=== PATIENT | female | born 1965 | race Caucasian/White ===

== ENCOUNTER 2017-01-27 12:16 | Emergency (ER) | payer SELFPAY ==
[~2017-01-27] VITALS: Ht 170.2 cm; Wt 80.0 kg
[~2017-01-27 12:16] MED LIST: ARIM1TAB PO; CARI1TAB34; CIPR-9 PO; CYCL1TAB29 PO; DIAZ5 PO; GABA300C3 PO; MOBI15TA PO
[2017-01-27 12:18] VITALS: BP 128/81; PULSE 104; RESP 16; TEMP 98.2; O2SAT 97
[2017-01-27 12:27] VITALS: BP 134/83; PULSE 98; RESP 17; O2SAT 98
[2017-01-27] MEDS ORDERED: ANAS1TAB PO (12:29)
[2017-01-27] MEDS ORDERED: GABA300C5 PO (12:29)
[2017-01-27] MEDS ORDERED: SOMA350T PO (12:29)
--- NOTE | 2017-01-27 12:39 | PD ---
HPI Chief Complaint: GI Complaint Time Seen by Provider: 12:39 Travel History International Travel<30 days: No Contact w/Intl Traveler<30days: No Traveled to known affect area: No History of Present Illness HPI 51-year-old female presents to the emergency department for evaluation of blood in her stool and abdominal pain. Patient states she had an episode of blood in her stool on Thursday. However, she felt okay. Last night, she went to have a bowel movement had diarrhea and noticed blood in her stool as well. She states she started with abdominal pain at that time. She states she has went into the bathroom to have a bowel movement 4 times today and has only noticed blood. She states is about 2-3 tablespoons of blood. She states the abdominal pain has been worsening. She did protrude at home with no improvement. She reports a history of breast cancer with double mastectomy. She states that she had chemotherapy and radiation, but has been in remission for 2 years. She states she caught her oncologist today due to her symptoms and they encouraged her to come to the emergency department. She denies any fevers. No chest pain or shortness of breath. She reports a history of a tubal ligation and laparoscopic surgery to the abdomen, but denies any other surgeries. She denies any urinary symptoms. PFSH Past Medical History Blood Disorders: No Cancer: Yes (bilat. mastectomy BREAST) Cardiovascular Problems: Yes Chemotherapy: Yes Diminished Hearing: No Endocrine: No Gastrointestinal Disorders: No Genitourinary: No Immune Disorder: No Musculoskeletal: No Neurologic: No Psychiatric: No Reproductive: No Respiratory: Yes ?: Not : 15 Para: 1 Miscarriage: 14 Tubal Ligation: Yes Past Surgical History AICD: No Arteriovenous Shunt: No Insulin Pump: No Joint Replacement: No Mastectomy: Yes (BILAT) Pacemaker: No Thoracic Surgery: Yes (LEFT PORT ) Other Surgery: No Social History Alcohol Use: Yes (RARELY) Tobacco Use: Yes (VAPOR CIGARETTES, 0 MG NICOTINE DOSE-hasn't used last few weeks) Substance Use: Yes (MARIJUANA Thursday night) Allergies-Medications (Allergen,Severity, Reaction): Coded Allergies: Penicillin (Verified Allergy, Severe, Anaphylaxis, 01/27/17) Codeine (Verified Allergy, Unknown, ITCH, 01/27/17) Reported Meds & Prescriptions Reported Meds & Active Scripts Active Cipro (Ciprofloxacin HCl) 500 Mg Tab 500 Mg PO BID 7 Days Lortab (Hydrocodone-Acetaminophen) 5-325 Mg Tab 1 Tab PO Q6H PRN Reported Anastrozole 1 Mg Tab 1 Mg PO DAILY Gabapentin 300 Mg Cap 300 Mg PO TID Soma (Carisoprodol) 350 Mg Tab 350 Mg PO QID PRN Review of Systems Except as stated in HPI: all other systems reviewed are Neg Physical Exam Narrative GENERAL: Well-developed well-nourished female patient, afebrile. SKIN: Warm and dry. HEAD: Normocephalic. Atraumatic. EYES: No scleral icterus. No injection or drainage. NECK: Supple, trachea midline. No JVD or lymphadenopathy. CARDIOVASCULAR: Regular rate and rhythm without murmurs, gallops, or rubs. RESPIRATORY: Breath sounds equal bilaterally. No accessory muscle use. Lungs sounds are clear to auscultation. GASTROINTESTINAL: Abdomen and nondistended. Patient has tenderness over the epigastric region and the lower abdomen. MUSCULOSKELETAL: No cyanosis, or edema. BACK: Nontender without obvious deformity. No CVA tenderness. RECTAL EXAM: No masses or tenderness, stool is brown. Rectal exam was done with the nurse at bedside. Hemoccult is positive. Data Data Last Documented VS Vital Signs Date Time Temp Pulse Resp B/P Pulse Ox O2 Delivery O2 Flow Rate FiO2 01/27/17 14:55 73 16 131/77 97 Room Air 01/27/17 12:18 98.2 Orders Morphine Inj (Morphine Inj) (01/27/17 12:45) Complete Blood Count With Diff (01/27/17 12:37) Comprehensive Metabolic Panel (01/27/17 12:37) Lipase (01/27/17 12:37) Urinalysis - C+S If Indicated (01/27/17 12:37) Ct Abd/Pel W Iv Contrast(Rout) (01/27/17 12:37) Iv Access Insert/Monitor (01/27/17 12:37) Ecg Monitoring (01/27/17 12:37) Oximetry (01/27/17 12:37) Ondansetron Inj (Zofran Inj) (01/27/17 12:45) Sodium Chloride 0.9% Flush (Ns Flush) (01/27/17 12:45) C Diff Toxin Pcr (01/27/17 12:37) Enteric Path (Stool) (01/27/17 12:37) Sodium Chlor 0.9% 1000 Ml Inj (Ns 1000 M (01/27/17 12:45) Urine Culture (01/27/17 13:06) Iohexol 350 Inj (Omnipaque 350 Inj) (01/27/17 14:35) Morphine Inj (Morphine Inj) (01/27/17 15:00) Mandatory Outpatient Referral (01/27/17 15:15) Labs Laboratory Tests Test 01/27/17 01/27/17 12:40 13:06 White Blood Count 11.8 TH/MM3 Red Blood Count 5.34 MIL/MM3 Hemoglobin 16.3 GM/DL Hematocrit 46.4 % Mean Corpuscular Volume 86.8 FL Mean Corpuscular Hemoglobin 30.5 PG Mean Corpuscular Hemoglobin 35.1 % Concent Red Cell Distribution Width 14.3 % Platelet Count 205 TH/MM3 Mean Platelet Volume 9.8 FL Neutrophils (%) (Auto) 65.8 % Lymphocytes (%) (Auto) 28.1 % Monocytes (%) (Auto) 4.5 % Eosinophils (%) (Auto) 0.8 % Basophils (%) (Auto) 0.8 % Neutrophils # (Auto) 7.7 TH/MM3 Lymphocytes # (Auto) 3.3 TH/MM3 Monocytes # (Auto) 0.5 TH/MM3 Eosinophils # (Auto) 0.1 TH/MM3 Basophils # (Auto) 0.1 TH/MM3 CBC Comment DIFF FINAL Differential Comment Sodium Level 138 MEQ/L Potassium Level 3.9 MEQ/L Chloride Level 105 MEQ/L Carbon Dioxide Level 24.9 MEQ/L Anion Gap 8 MEQ/L Blood Urea Nitrogen 16 MG/DL Creatinine 0.82 MG/DL Estimat Glomerular Filtration 73 ML/MIN Rate Random Glucose 146 MG/DL Calcium Level 8.9 MG/DL Total Bilirubin 0.5 MG/DL Aspartate Amino Transf 20 U/L (AST/SGOT) Alanine Aminotransferase 30 U/L (ALT/SGPT) Alkaline Phosphatase 110 U/L Total Protein 8.1 GM/DL Albumin 4.0 GM/DL Lipase 161 U/L Urine Color YELLOW Urine Turbidity HAZY Urine pH 6.0 Urine Specific [place] 1.022 Urine Protein TRACE mg/dL Urine Glucose (UA) 150 mg/dL Urine Ketones TRACE mg/dL Urine Occult Blood NEG Urine Nitrite NEG Urine Bilirubin NEG Urine Urobilinogen LESS THAN 2.0 MG/DL Urine Leukocyte Esterase TRACE Urine RBC 2 /hpf Urine WBC 3 /hpf Urine Squamous Epithelial 9 /hpf Cells Urine Bacteria MOD /hpf Microscopic Urinalysis Comment CULTURE INDICATED MDM Medical Decision Making Medical Screen Exam Complete: Yes Emergency Medical Condition: Yes Interpretation(s) CONCLUSION: 1. Wall thickening involving the splenic flexure could be focal colitis. No perforation or abscess. Once the acute symptoms resolve patient will likely need a colonoscopy to exclude underlying pathology. 2. Enlarged heterogeneous uterus containing leiomyomata. 3. Left-sided renal cyst. Differential Diagnosis Colitis versus gastroenteritis versus diverticulitis versus appendicitis versus gastric ulcer Narrative Course 51-year-old female presents to the emergency department for evaluation of blood in her stool and abdominal pain. CBC, CMP, lipase, UA, stool for C. difficile and enteric pathogens are ordered and pending. CT the abdomen/pelvis with IV contrast is ordered and pending. Patient is given normal saline 1 L IV bolus, Zofran 4 mg IV, morphine 4 mg IV. CBC shows slight leukocytosis of 11.8, hemoglobin 16.3 hematocrit 46.4. CMP shows no acute abnormality. Lipase is 161. UA shows trace leukocyte esterase, moderate bacteria, culture indicated. Patient was unable to give stool sample. CT of the abdomen/pelvis shows wall thickening involving the splenic flexure could be focal colitis. No perforation or abscess. Once the acute symptoms resolve patient will likely need a colonoscopy to exclude underlying pathology; 2. Enlarged heterogeneous uterus containing leiomyomata; 3. Left-sided renal cyst. I discussed the symptoms, physical, results with my attending physician, Dr. Law, who agrees with plan and disposition. I discussed results with the patient. I instructed on need to follow up with gastroenterology for colonoscopy. Patient states she would like to go home. I offered admission for intractable abdominal pain, but she declined stating she would like to go home. Patient will be discharged prescription for Lortab for pain. I will also discharge her with prescription for Cipro for UTI. She is to return for any acute, worsening of symptoms. The patient was discharged in stable condition with instructions, including return instructions and follow up instructions. HemaPrompt Point of Care Internal Pos. & Neg. Controls: Passed Fecal Specimen Occult Blood: Positive Diagnosis Primary Impression: Colitis Additional Impression: Urinary tract infection Qualified Code: N30.00 - Acute cystitis without hematuria Referrals: [facility] call for appointment Patient Instructions: Colitis (ED), General Instructions, Urinary Tract Infection in Women (ED) Additional Instructions: Take cipro as directed until gone for UTI. Take Lortab as directed as needed for pain. Caution this can make you drowsy so do not drive after taking. Follow up with gastroenterology. Return to the emergency department for any acute, worsening of symptoms. Med/Other Pt SpecificInfo: Prescription(s) given Scripts Ciprofloxacin (Cipro)500 Mg [id number] Mg PO BID 7 Days Ref 0 Prov:Sharron Grullon 01/27/17 Hydrocodone-Acetaminophen (Lortab)5-325 Mg Tab1 Tab PO Q6H PRN (PAIN) #16 TAB Ref 0 Prov:Melissa Law MD 01/27/17 Disposition: 01 DISCHARGE HOME Condition: Stable Sharron Grullon Jan 27, 2017 12:39
[2017-01-27] MEDS ORDERED: ONDANSETRON HCL 4 MG/2 ML VIAL IVP ONE (12:45)
[2017-01-27] MEDS ORDERED: SODIUM CHLORIDE 0.9% FLUSH 5 ML FLUSH IVF PRN (12:45)
[2017-01-27] MEDS ORDERED: SODIUM CHLOR 0.9% 1000 ML INJ 1,000 ML IV ONE (12:45)
[2017-01-27] MEDS ORDERED: MORPHINE SULFATE 4 MG/ML INJ IV PUSH ONE ×2 (12:45→15:00)
[2017-01-27 13:06] LABS: AUTOMATED NEUTROPHIL # 7.7 TH/MM3 (1.8-7.7); BASOPHIL # 0.1 TH/MM3 (0-0.2); BASOPHIL % 0.8 % (0.0-2.0); EOSINOPHIL # 0.1 TH/MM3 (0-0.4); EOSINOPHIL % 0.8 % (0.0-4.0); HEMATOCRIT 46.4 % (35.0-46.0); HEMO FLAGS DIFF FINAL; LYMPH % 28.1 % (9.0-44.0); LYMPHOCYTE # 3.3 TH/MM3 (1.0-4.8); MEAN CELL VOLUME 86.8 FL (80.0-100.0); MEAN CORPUSCULAR HEMOGLOBIN 30.5 PG (27.0-34.0); MEAN CORPUSCULAR HGB CONC 35.1 % (32.0-36.0); MONO % 4.5 % (0.0-8.0); NEUT % 65.8 % (16.0-70.0); PLATELET COUNT 205 TH/MM3 (150-450); RED BLOOD COUNT 5.34 MIL/MM3 (4.00-5.30); RED CELL DISTRIBUTION WIDTH 14.3 % (11.6-17.2); WHITE BLOOD COUNT 11.8 TH/MM3 (4.0-11.0)
[2017-01-27 13:24] LABS: ANION GAP 8 MEQ/L (5-15); AST (GOT) 20 U/L (15-37); BICARBONATE 24.9 MEQ/L (21.0-32.0); BLOOD UREA NITROGEN 16 MG/DL (7-18); CHLORIDE 105 MEQ/L (98-107); GLOMERULAR FILTRATION RATE 73 ML/MIN (>89); POTASSIUM 3.9 MEQ/L (3.5-5.1); SODIUM (NA) 138 MEQ/L (136-145)
[2017-01-27 13:27] LABS: ALKALINE PHOSPHATASE 110 U/L (45-117); ALT (GPT) 30 U/L (10-53); TOTAL BILIRUBIN ADULT 0.5 MG/DL (0.2-1.0)
[2017-01-27 14:25] LABS: BACTERIA, URINE MOD /hpf; BLOOD, URINE NEG (NEG); COMMENT (UR) CULTURE INDICATED; CULTURE IF INDICATED CULTURE INDICATED; GLUCOSE,URINE 150 mg/dL (NEG); KETONE, URINE TRACE mg/dL (NEG); NITRITE,URINE NEG (NEG); SQUAMOUS EPITHELIAL CELL URINE 9 /hpf (0-5); URINE COLOR YELLOW (YELLW/STRAW)
[2017-01-27] MEDS ORDERED: IOHEXOL 350 MG/ML 10 ML VIAL (for RAD DIAG) IV ONE (14:35)
[2017-01-27 14:55] VITALS: BP 131/77; PULSE 73; RESP 16; O2SAT 97
--- NOTE | 2017-01-27 14:56 | RADRPT ---
EXAM DATE/TIME: 01/27/2017 14:25 [facility] COMPARISON: No previous studies available for comparison. INDICATIONS : Rectal bleeding with lower quadrant pain. IV CONTRAST: 86 cc Omnipaque 350 (iohexol) IV ORAL CONTRAST: No oral contrast ingested. RADIATION DOSE: 10.72 CTDIvol (mGy) MEDICAL HISTORY : Cardiovascular disease. SURGICAL HISTORY : Mastectomy, bilateral. Tubal ligation. ENCOUNTER: Initial ACUITY: 1 day PAIN SCALE: 7/10 LOCATION: lower quadrant TECHNIQUE: Volumetric scanning of the abdomen and pelvis was performed. Using automated exposure control and ad justment of the mA and/or kV according to patient size, radiation dose was kept as low as reasonably achievable to obtain optimal diagnostic quality images. FINDINGS: LOWER LUNGS: The visualized lower lungs are clear. LIVER: Homogeneous density without lesion. There is no dilation of the biliary tree. No calcified gallston es. SPLEEN: Normal size without lesion. PANCREAS: Within normal limits. KIDNEYS: Normal in size and shape. There is no mass, stone or hydronephrosis. Low-density left kidney. ADRENAL GLANDS: Within normal limits. VASCULAR: There is no aortic aneurysm. BOWEL/MESENTERY: Wall thickening involving the splenic flexure. No inflammatory changes.. There is no free intraperit brewer air or fluid. ABDOMINAL WALL: Within normal limits. RETROPERITONEUM: There is no lymphadenopathy. BLADDER: No wall thickening or mass. REPRODUCTIVE: Heterogeneous uterus containing leiomyomas. INGUINAL: There is no lymphadenopathy or hernia. MUSCULOSKELETAL: Within normal limits for patient age. CONCLUSION: 1. Wall thickening involving the splenic flexure could be focal colitis. No perforation or abscess. O nce the acute symptoms resolve patient will likely need a colonoscopy to exclude underlying pathology . 2. Enlarged heterogeneous uterus containing leiomyomata. 3. Left-sided renal cyst. Ag Newman MD on January 27, 2017 at 14:47 Board Certified Radiologist. This report was verified electronically.
[2017-01-27] MEDS ORDERED: HYDR-3533 PO (15:02)
[2017-01-27] MEDS ORDERED: CIPR-9 PO ×2 (15:06→15:20)
== END 2017-01-27 16:22 | disposition home or self-care (01) ==
LOC: NEPA 12:16
DX: K52.9 Noninfective gastroenteritis and colitis, unspecified (principal); N39.0 Urinary tract infection, site not specified; R19.7 Diarrhea, unspecified; R10.9 Unspecified abdominal pain
CPT/HCPCS: 74177; 80053; 81001; 83690; 85025; 87086; 96361; 96374; 96375; 96376; 99285; J2270; J2405; J7030; Q9967

== ENCOUNTER 2017-02-17 12:31 | Emergency (ER) | payer SELFPAY ==
[~2017-02-17] VITALS: Ht 170.2 cm; Wt 80.0 kg
[2017-02-17 12:31] VITALS: BP 125/82; PULSE 115; RESP 20; TEMP 97.6; O2SAT 97
[~2017-02-17 12:31] MED LIST changes: +ANAS1TAB PO; -ARIM1TAB PO; -CARI1TAB34; -CYCL1TAB29 PO; -DIAZ5 PO; -GABA300C3 PO; +GABA300C5 PO; +HYDR-3533 PO; -MOBI15TA PO; +SOMA350T PO
--- NOTE | 2017-02-17 15:07 | PD ---
HPI Chief Complaint: GI Complaint Time Seen by Provider: 15:07 Travel History International Travel<30 days: No Contact w/Intl Traveler<30days: No Traveled to known affect area: No History of Present Illness HPI 51-year-old female presents to the emergency department for evaluation of abdominal pain. Patient was seen on 2016 for similar symptoms. She is recommended for outpatient GI follow-up. However, she states she cannot have a colonoscopy until she gets her oncologist to give her the okay for it. Patient reports history of breast cancer, but is in remission. She states that her symptoms did improve. However, 4 days ago, she started with increasing abdominal pain, bleeding from her rectum. She reports vomiting for the past 3 days. She states she is only able to keep only small amounts of ensure down. Patient states the bleeding from her rectum is dark. She denies any fevers or chills. No chest pain or shortness of breath. She has history of chronic pain from her mastectomy. Patient reports history of a tubal ligation, laparoscopic surgery. PFSH Past Medical History Blood Disorders: No Cancer: Yes (bilat. mastectomy BREAST) Cardiovascular Problems: Yes Chemotherapy: Yes Diminished Hearing: No Endocrine: No Gastrointestinal Disorders: No Genitourinary: No Immune Disorder: No Musculoskeletal: No Neurologic: No Psychiatric: No Reproductive: No Respiratory: Yes ?: Not LMP: 8 YEARS AGO : 15 Para: 1 Miscarriage: 14 Tubal Ligation: Yes Past Surgical History AICD: No Arteriovenous Shunt: No Insulin Pump: No Joint Replacement: No Mastectomy: Yes (BILAT) Pacemaker: No Thoracic Surgery: Yes (LEFT PORT ) Other Surgery: No Social History Alcohol Use: Yes (RARELY) Tobacco Use: Yes (VAPOR CIGARETTES, 0 MG NICOTINE DOSE-hasn't used last few weeks) Substance Use: Yes (MARIJUANA Thursday night) Allergies-Medications (Allergen,Severity, Reaction): Coded Allergies: Penicillin (Verified Allergy, Severe, Anaphylaxis, 02/17/17) Codeine (Verified Allergy, Unknown, ITCH, 02/17/17) Reported Meds & Prescriptions Reported Meds & Active Scripts Active Cipro (Ciprofloxacin HCl) 500 Mg Tab 500 Mg PO BID 7 Days Lortab (Hydrocodone-Acetaminophen) 5-325 Mg Tab 1 Tab PO Q6H PRN Reported Anastrozole 1 Mg Tab 1 Mg PO DAILY Gabapentin 300 Mg Cap 300 Mg PO TID Soma (Carisoprodol) 350 Mg Tab 350 Mg PO QID PRN Review of Systems Except as stated in HPI: all other systems reviewed are Neg General / Constitutional: No: Fever, Chills HENT: No: Lightheadedness Cardiovascular: No: Chest Pain or Discomfort, Irregular Rhythm Gastrointestinal: Positive: Nausea, Vomiting, Abdominal Pain, Hematochezia Genitourinary: No: Decreased Urinary Output Neurologic: No: Syncope, Change in Mentation Psychiatric: No: Suicidal Ideations Physical Exam Narrative GENERAL: Well-developed well-nourished female patient, ambulatory. Afebrile. SKIN: Warm and dry. HEAD: Normocephalic. Atraumatic. EYES: No scleral icterus. No injection or drainage. NECK: Supple, trachea midline. No JVD or lymphadenopathy. CARDIOVASCULAR: Regular rate and rhythm without murmurs, gallops, or rubs. RESPIRATORY: Breath sounds equal bilaterally. No accessory muscle use. Lungs sounds are clear to auscultation. GASTROINTESTINAL: Abdomen soft and nondistended. Patient has tenderness over her right upper quadrant, left lower quadrant, suprapubic region. Pain is the worst in the left lower quadrant. MUSCULOSKELETAL: No cyanosis, or edema. BACK: Nontender without obvious deformity. No CVA tenderness. RECTAL EXAM: No masses or tenderness, stool is brown. Rectal exam was done with nurse, Andrew, at bedside. Data Data Last Documented VS Vital Signs Date Time Temp Pulse Resp B/P Pulse Ox O2 Delivery O2 Flow Rate FiO2 02/17/17 17:39 96 20 128/79 95 Room Air 02/17/17 12:31 97.6 Orders Complete Blood Count With Diff (02/17/17 15:06) Comprehensive Metabolic Panel (02/17/17 15:06) Lipase (02/17/17 15:06) Prothrombin Time / Inr (Pt) (02/17/17 15:06) Act Partial Throm Time (Ptt) (02/17/17 15:06) Urinalysis - C+S If Indicated (02/17/17 15:06) Type And Screen (02/17/17 15:06) Ondansetron Odt (Zofran Odt) (02/17/17 15:15) Morphine Inj (Morphine Inj) (02/17/17 18:30) Sodium Chlor 0.9% 1000 Ml Inj (Ns 1000 M (02/17/17 18:30) Ct Abd/Pel W Iv Contrast(Rout) (02/17/17 ) Iohexol 350 Inj (Omnipaque 350 Inj) (02/17/17 18:52) Labs Laboratory Tests Test 02/17/17 15:20 White Blood Count 12.1 TH/MM3 Red Blood Count 5.67 MIL/MM3 Hemoglobin 17.1 GM/DL Hematocrit 49.6 % Mean Corpuscular Volume 87.6 FL Mean Corpuscular Hemoglobin 30.2 PG Mean Corpuscular Hemoglobin 34.5 % Concent Red Cell Distribution Width 14.1 % Platelet Count 218 TH/MM3 Mean Platelet Volume 9.5 FL Neutrophils (%) (Auto) 54.6 % Lymphocytes (%) (Auto) 34.3 % Monocytes (%) (Auto) 6.0 % Eosinophils (%) (Auto) 4.4 % Basophils (%) (Auto) 0.7 % Neutrophils # (Auto) 6.6 TH/MM3 Lymphocytes # (Auto) 4.2 TH/MM3 Monocytes # (Auto) 0.7 TH/MM3 Eosinophils # (Auto) 0.5 TH/MM3 Basophils # (Auto) 0.1 TH/MM3 CBC Comment DIFF FINAL Differential Comment Prothrombin Time 10.2 SEC Prothromb Time International 0.9 RATIO Ratio Activated Partial 27.0 SEC Thromboplast Time Urine Color YELLOW Urine Turbidity CLEAR Urine pH 7.5 Urine Specific [place] 1.009 Urine Protein NEG mg/dL Urine Glucose (UA) NEG mg/dL Urine Ketones NEG mg/dL Urine Occult Blood NEG Urine Nitrite NEG Urine Bilirubin NEG Urine Urobilinogen LESS THAN 2.0 MG/DL Urine Leukocyte Esterase NEG Urine WBC LESS THAN 1 /hpf Urine Squamous Epithelial <1 /hpf Cells Microscopic Urinalysis Comment CULT NOT INDICATED Sodium Level 140 MEQ/L Potassium Level 4.7 MEQ/L Chloride Level 103 MEQ/L Carbon Dioxide Level 31.4 MEQ/L Anion Gap 6 MEQ/L Blood Urea Nitrogen 9 MG/DL Creatinine 0.82 MG/DL Estimat Glomerular Filtration 73 ML/MIN Rate Random Glucose 130 MG/DL Calcium Level 10.3 MG/DL Total Bilirubin 0.2 MG/DL Aspartate Amino Transf 17 U/L (AST/SGOT) Alanine Aminotransferase 32 U/L (ALT/SGPT) Alkaline Phosphatase 141 U/L Total Protein 8.9 GM/DL Albumin 4.2 GM/DL Lipase 206 U/L Blood Type A POSITIVE Antibody Screen NEGATIVE Blood Bank Comment MDM Medical Decision Making Medical Screen Exam Complete: Yes Emergency Medical Condition: Yes Medical Record Reviewed: Yes Differential Diagnosis Colitis versus gastroenteritis versus lower GI bleed versus upper GI bleed versus diverticulitis Narrative Course 51-year-old female presents to the emergency department for evaluation of rectal bleeding and abdominal pain. She was seen in December for the same, but symptoms recurred and are worse 4 days ago. CBC, CMP, lipase, UA, type and screen, PTT, PT/INR ordered and pending. Patient is given Zofran 4 mg ODT in triage for nausea. Rectal exam is completed in triage and is negative for occult blood. Workup is initiated in triage. Once a medical bed becomes available, patient will be transferred and care assumed by that provider. HemaPrompt Point of Care Internal Pos. & Neg. Controls: Passed Fecal Specimen Occult Blood: Negative Sharron Grullon Feb 17, 2017 15:07
[2017-02-17] MEDS ORDERED: ONDANSETRON ODT 4 MG TAB PO ONE (15:15)
[2017-02-17 16:02] LABS: AUTOMATED NEUTROPHIL # 6.6 TH/MM3 (1.8-7.7); BASOPHIL # 0.1 TH/MM3 (0-0.2); BASOPHIL % 0.7 % (0.0-2.0); EOSINOPHIL # 0.5 TH/MM3 (0-0.4); EOSINOPHIL % 4.4 % (0.0-4.0); HEMATOCRIT 49.6 % (35.0-46.0); HEMO FLAGS DIFF FINAL; LYMPH % 34.3 % (9.0-44.0); LYMPHOCYTE # 4.2 TH/MM3 (1.0-4.8); MEAN CELL VOLUME 87.6 FL (80.0-100.0); MEAN CORPUSCULAR HEMOGLOBIN 30.2 PG (27.0-34.0); MEAN CORPUSCULAR HGB CONC 34.5 % (32.0-36.0); NEUT % 54.6 % (16.0-70.0); PLATELET COUNT 218 TH/MM3 (150-450); RED BLOOD COUNT 5.67 MIL/MM3 (4.00-5.30); RED CELL DISTRIBUTION WIDTH 14.1 % (11.6-17.2); WHITE BLOOD COUNT 12.1 TH/MM3 (4.0-11.0)
[2017-02-17 16:18] LABS: ALT (GPT) 32 U/L (10-53); ANION GAP 6 MEQ/L (5-15); AST (GOT) 17 U/L (15-37); BICARBONATE 31.4 MEQ/L (21.0-32.0); BLOOD UREA NITROGEN 9 MG/DL (7-18); CHLORIDE 103 MEQ/L (98-107); GLOMERULAR FILTRATION RATE 73 ML/MIN (>89); POTASSIUM 4.7 MEQ/L (3.5-5.1); SODIUM (NA) 140 MEQ/L (136-145)
[2017-02-17 16:19] LABS: INTERNATIONAL NORMALIZED RATIO 0.9 RATIO; PROTHROMBIN TIME - PATIENT 10.2 SEC (9.8-11.6)
[2017-02-17 16:21] LABS: ALKALINE PHOSPHATASE 141 U/L (45-117); BLOOD, URINE NEG (NEG); GLUCOSE,URINE NEG (NEG); KETONE, URINE NEG (NEG); NITRITE,URINE NEG (NEG); PH, URINE 7.5 (5.0-8.5); SQUAMOUS EPITHELIAL CELL URINE <1 /hpf (0-5); TOTAL BILIRUBIN ADULT 0.2 MG/DL (0.2-1.0); URINE COLOR YELLOW (YELLW/STRAW)
[2017-02-17 16:28] LABS: COMMENT (UR) CULT NOT INDICATED; CULTURE IF INDICATED CULT NOT INDICATED
[2017-02-17 17:39] VITALS: BP 128/79; PULSE 96; RESP 20; O2SAT 95
[2017-02-17] MEDS ORDERED: MORPHINE SULFATE 4 MG/ML INJ IV PUSH ONE ×2 (18:30→20:15)
[2017-02-17] MEDS ORDERED: SODIUM CHLOR 0.9% 1000 ML INJ 1,000 ML IV ONE (18:30)
--- NOTE | 2017-02-17 18:33 | PD ---
Physical Exam Narrative Pt's work up was initiated at triage and seen by MONITORING MANAGER at triage. Pt was then transferred to medical bed. I, Dr. Delgado, have reviewed the advance practice practitioner's documentation and am in agreement, met with the patient face to face, made the diagnosis, and the medical decision making was done by me. *My assessment and Findings: Colitis vs. abscess vs. appendicitis vs. constipation vs. obstruction 51yo F with PMH of breast CA here with lower abdominal pain for 3 days. + Intermittent nausea and vomiting. +Tactile fever. Denies any chest pain, sob, vaginal bleeding or discharge or urinary complaints. Pt complained of blood during bowel movement. Hemaprompt done at triage was negative. Pt was seen here on 01/27/17 for similar complaints and had CTa/p that showed wall thickening , possible colitis. Labs reviewed, mild leukocytosis at 12.1. H/H increased at 17.1/49.6. Mild elevated of calcium at 10.3. UA negative. GENERAL: 51yo F not in distress. SKIN: Warm and dry. HEAD: Atraumatic. Normocephalic. EYES: Pupils equal and round. No scleral icterus. No injection or drainage. CARDIOVASCULAR: Regular rate and rhythm. No murmur appreciated. RESPIRATORY: No accessory muscle use. Clear to auscultation. Breath sounds equal bilaterally. GASTROINTESTINAL: Abdomen soft, +TTP LUQ, LLQ, RLQ. No rebound tenderness or guarding. MUSCULOSKELETAL: No obvious deformities. No clubbing. No cyanosis. No edema. NEUROLOGICAL: Awake and alert. No obvious cranial nerve deficits. Motor grossly within normal limits. Normal speech. PSYCHIATRIC: Appropriate mood and affect; insight and judgment normal. CTa/p showed no acute pathology. Uterine fibroid and left renal cyst. Pt given morphine 8mg IV for pain and NS IVF. Abdominal pain improved. Pt reevaluated at bedside and abdominal exam benign. Return precautions given. Pt is to follow up with outpatient PMD or GI. Data Data Last Documented VS Vital Signs Date Time Temp Pulse Resp B/P Pulse Ox O2 Delivery O2 Flow Rate FiO2 02/17/17 19:43 83 18 123/82 96 Room Air 02/17/17 12:31 97.6 Orders Complete Blood Count With Diff (02/17/17 15:06) Comprehensive Metabolic Panel (02/17/17 15:06) Lipase (02/17/17 15:06) Prothrombin Time / Inr (Pt) (02/17/17 15:06) Act Partial Throm Time (Ptt) (02/17/17 15:06) Urinalysis - C+S If Indicated (02/17/17 15:06) Type And Screen (02/17/17 15:06) Ondansetron Odt (Zofran Odt) (02/17/17 15:15) Morphine Inj (Morphine Inj) (02/17/17 18:30) Sodium Chlor 0.9% 1000 Ml Inj (Ns 1000 M (02/17/17 18:30) Ct Abd/Pel W Iv Contrast(Rout) (02/17/17 ) Iohexol 350 Inj (Omnipaque 350 Inj) (02/17/17 18:52) Morphine Inj (Morphine Inj) (02/17/17 20:15) Labs Laboratory Tests Test 02/17/17 15:20 White Blood Count 12.1 TH/MM3 Red Blood Count 5.67 MIL/MM3 Hemoglobin 17.1 GM/DL Hematocrit 49.6 % Mean Corpuscular Volume 87.6 FL Mean Corpuscular Hemoglobin 30.2 PG Mean Corpuscular Hemoglobin 34.5 % Concent Red Cell Distribution Width 14.1 % Platelet Count 218 TH/MM3 Mean Platelet Volume 9.5 FL Neutrophils (%) (Auto) 54.6 % Lymphocytes (%) (Auto) 34.3 % Monocytes (%) (Auto) 6.0 % Eosinophils (%) (Auto) 4.4 % Basophils (%) (Auto) 0.7 % Neutrophils # (Auto) 6.6 TH/MM3 Lymphocytes # (Auto) 4.2 TH/MM3 Monocytes # (Auto) 0.7 TH/MM3 Eosinophils # (Auto) 0.5 TH/MM3 Basophils # (Auto) 0.1 TH/MM3 CBC Comment DIFF FINAL Differential Comment Prothrombin Time 10.2 SEC Prothromb Time International 0.9 RATIO Ratio Activated Partial 27.0 SEC Thromboplast Time Urine Color YELLOW Urine Turbidity CLEAR Urine pH 7.5 Urine Specific [place] 1.009 Urine Protein NEG mg/dL Urine Glucose (UA) NEG mg/dL Urine Ketones NEG mg/dL Urine Occult Blood NEG Urine Nitrite NEG Urine Bilirubin NEG Urine Urobilinogen LESS THAN 2.0 MG/DL Urine Leukocyte Esterase NEG Urine WBC LESS THAN 1 /hpf Urine Squamous Epithelial <1 /hpf Cells Microscopic Urinalysis Comment CULT NOT INDICATED Sodium Level 140 MEQ/L Potassium Level 4.7 MEQ/L Chloride Level 103 MEQ/L Carbon Dioxide Level 31.4 MEQ/L Anion Gap 6 MEQ/L Blood Urea Nitrogen 9 MG/DL Creatinine 0.82 MG/DL Estimat Glomerular Filtration 73 ML/MIN Rate Random Glucose 130 MG/DL Calcium Level 10.3 MG/DL Total Bilirubin 0.2 MG/DL Aspartate Amino Transf 17 U/L (AST/SGOT) Alanine Aminotransferase 32 U/L (ALT/SGPT) Alkaline Phosphatase 141 U/L Total Protein 8.9 GM/DL Albumin 4.2 GM/DL Lipase 206 U/L Blood Type A POSITIVE Antibody Screen NEGATIVE Blood Bank Comment MDM Supervised Visit with MAXIMINO: Yes Interpretation(s) Laboratory Tests Test 02/17/17 15:20 White Blood Count 12.1 TH/MM3 (4.0-11.0) Red Blood Count 5.67 MIL/MM3 (4.00-5.30) Hemoglobin 17.1 GM/DL (11.6-15.3) Hematocrit 49.6 % (35.0-46.0) Mean Corpuscular Volume 87.6 FL (80.0-100.0) Mean Corpuscular Hemoglobin 30.2 PG (27.0-34.0) Mean Corpuscular Hemoglobin 34.5 % Concent (32.0-36.0) Red Cell Distribution Width 14.1 % (11.6-17.2) Platelet Count 218 TH/MM3 (150-450) Mean Platelet Volume 9.5 FL (7.0-11.0) Neutrophils (%) (Auto) 54.6 % (16.0-70.0) Lymphocytes (%) (Auto) 34.3 % (9.0-44.0) Monocytes (%) (Auto) 6.0 % (0.0-8.0) Eosinophils (%) (Auto) 4.4 % (0.0-4.0) Basophils (%) (Auto) 0.7 % (0.0-2.0) Neutrophils # (Auto) 6.6 TH/MM3 (1.8-7.7) Lymphocytes # (Auto) 4.2 TH/MM3 (1.0-4.8) Monocytes # (Auto) 0.7 TH/MM3 (0-0.9) Eosinophils # (Auto) 0.5 TH/MM3 (0-0.4) Basophils # (Auto) 0.1 TH/MM3 (0-0.2) CBC Comment DIFF FINAL Differential Comment Prothrombin Time 10.2 SEC (9.8-11.6) Prothromb Time International 0.9 RATIO Ratio Activated Partial 27.0 SEC Thromboplast Time (24.3-30.1) Urine Color YELLOW (YELLW/STRAW) Urine Turbidity CLEAR (CLEAR) Urine pH 7.5 (5.0-8.5) Urine Specific [place] 1.009 (1.002-1.035) Urine Protein NEG mg/dL (NEG-TRACE) Urine Glucose (UA) NEG mg/dL (NEG) Urine Ketones NEG mg/dL (NEG) Urine Occult Blood NEG (NEG) Urine Nitrite NEG (NEG) Urine Bilirubin NEG (NEG) Urine Urobilinogen LESS THAN 2.0 MG/DL (LESS THAN 2.0) Urine Leukocyte Esterase NEG (NEG) Urine WBC LESS THAN 1 /hpf (0-5) Urine Squamous Epithelial <1 /hpf (0-5) Cells Microscopic Urinalysis Comment CULT NOT INDICATED Sodium Level 140 MEQ/L (136-145) Potassium Level 4.7 MEQ/L (3.5-5.1) Chloride Level 103 MEQ/L (98-107) Carbon Dioxide Level 31.4 MEQ/L (21.0-32.0) Anion Gap 6 MEQ/L (5-15) Blood Urea Nitrogen 9 MG/DL (7-18) Creatinine 0.82 MG/DL (0.50-1.00) Estimat Glomerular Filtration 73 ML/MIN (>89) Rate Random Glucose 130 MG/DL (74-106) Calcium Level 10.3 MG/DL (8.5-10.1) Total Bilirubin 0.2 MG/DL (0.2-1.0) Aspartate Amino Transf 17 U/L (15-37) (AST/SGOT) Alanine Aminotransferase 32 U/L (10-53) (ALT/SGPT) Alkaline Phosphatase 141 U/L (45-117) Total Protein 8.9 GM/DL (6.4-8.2) Albumin 4.2 GM/DL (3.4-5.0) Lipase 206 U/L (73-393) Blood Type A POSITIVE Antibody Screen NEGATIVE Blood Bank Comment Last Impressions Abdomen/Pelvis CT 02/17/17 0000 Signed Impressions: Service Date/Time: Friday, February 17, 2017 18:40 - CONCLUSION: Uterine fibroids and left renal cysts. Mani Schofield MD Diagnosis Primary Impression: Abdominal pain Qualified Code: R10.30 - Lower abdominal pain Patient Instructions: General Instructions Departure Forms: Tests/Procedures Additional Instruction: Please follow up with your PMD in 1-2 days. Return to the ED if symptoms worsen. Med/Other Pt SpecificInfo: Prescription(s) given Scripts Acetaminophen (Acetaminophen Extra Strength)500 Mg Dpo156 Mg PO Q6H PRN #20 CAP Ref 0 Prov:Rita Delgado DO 02/17/17 Disposition: 01 DISCHARGE HOME Condition: Stable Rita Delgado DO Feb 17, 2017 18:32
[2017-02-17] MEDS ORDERED: IOHEXOL 350 MG/ML 10 ML VIAL (for RAD DIAG) IV ONE (18:52)
--- NOTE | 2017-02-17 19:02 | RADRPT ---
EXAM DATE/TIME: 02/17/2017 18:40 [facility] COMPARISON: CT ABDOMEN & PELVIS W CONTRAST, January 27, 2017, 14:25. INDICATIONS : Nausea and vomiting with rectal bleeding. IV CONTRAST: 92 cc Omnipaque 350 (iohexol) IV ORAL CONTRAST: No oral contrast ingested. RADIATION DOSE: 9.96 CTDIvol (mGy) MEDICAL HISTORY : Cardiovascular disease. Carcinoma, breast. SURGICAL HISTORY : Tubal ligation. ENCOUNTER: Initial ACUITY: 1 day PAIN SCALE: 7/10 LOCATION: Diffuse abdominal pain TECHNIQUE: Volumetric scanning of the abdomen and pelvis was performed. Using automated exposure control and adjustment of the mA and/or kV according to patient size, radiation dose was kept as low as reasonably achievable to obtain optimal diagnostic quality images. FINDINGS: CT Abdomen: The liver, spleen, pancreas, right kidney, adrenals are unremarkable. There is no evidenc e for any appreciable pathological adenopathy, free fluid, or bowel obstruction. There are simple cy sts in the left kidney the largest measures 1.[address] pelvis: There is no evidence for mass, abscess formation, or any significant adenopathy within the pelvis. Multiple uterine fibroids are present the largest one measures 3.4 cm in size. CONCLUSION: Uterine fibroids and left renal cysts. Mani Schofield MD on February 17, 2017 at 18:56 Board Certified Radiologist. This report was verified electronically.
[2017-02-17 19:43] VITALS: BP 123/82; PULSE 83; RESP 18; O2SAT 96
[2017-02-17] MEDS ORDERED: EXTR500C PO (20:12)
== END 2017-02-17 21:04 | disposition home or self-care (01) ==
LOC: NEPA 12:31
DX: R10.9 Unspecified abdominal pain (principal); F17.200 Nicotine dependence, unspecified, uncomplicated; Z85.3 Personal history of malignant neoplasm of breast; R11.2 Nausea with vomiting, unspecified; N28.1 Cyst of kidney, acquired; D25.9 Leiomyoma of uterus, unspecified
CPT/HCPCS: 74177; 80053; 81001; 83690; 85025; 85610; 85730; 86850; 86900; 86901; 96361; 96374; 96376; 99284; J2270; J7030; Q9967

== ENCOUNTER 2017-04-24 07:16 | Emergency (ER) | payer SELFPAY ==
[~2017-04-24] VITALS: Ht 170.2 cm; Wt 77.0 kg
[~2017-04-24 07:16] MED LIST changes: +EXTR500C PO
[2017-04-24 07:18] VITALS: BP 156/82; PULSE 98; RESP 20; TEMP 97.7; O2SAT 96
[2017-04-24] MEDS ORDERED: METF1000 PO (07:39)
[2017-04-24] MEDS ORDERED: GABA600T PO (07:39)
[2017-04-24] MEDS ORDERED: CELE1CAP11 PO (07:39)
[2017-04-24] MEDS ORDERED: POLY10O RIGHT EYE (07:47)
[2017-04-24] MEDS ORDERED: IBUP800T23 PO (07:47)
--- NOTE | 2017-04-24 07:48 | PD ---
HPI Chief Complaint: Eye Problems/Injury Time Seen by Provider: 07:43 Travel History International Travel<30 days: No Contact w/Intl Traveler<30days: No Traveled to known affect area: No History of Present Illness HPI 51-year-old female presents to the emergency department with complaint of pain and swelling to her right lower eyelid 2 days. States that she thinks she has a sty. She has been using stye drops with no relief of symptoms. Also been taking ibuprofen, Tylenol, and Aleve with minimal relief of pain. Denies change in vision. Denies eye drainage. Denies fever, vomiting. Says that is a possibility that she got something in her eye secondary to her air- conditioning unit being cleaned a couple days ago. Allergies to codeine and penicillin. Has no other medical complaints. No other modifying factors or associated signs and symptoms. PFSH Past Medical History Blood Disorders: No Cancer: Yes (bilat. mastectomy BREAST) Cardiovascular Problems: Yes Chemotherapy: Yes Diminished Hearing: No Endocrine: No Gastrointestinal Disorders: No Genitourinary: No Immune Disorder: No Musculoskeletal: No Neurologic: No Psychiatric: No Reproductive: No Respiratory: Yes : 15 Para: 1 Miscarriage: 14 Tubal Ligation: Yes Past Surgical History AICD: No Arteriovenous Shunt: No Insulin Pump: No Joint Replacement: No Mastectomy: Yes (BILAT) Pacemaker: No Thoracic Surgery: Yes (LEFT PORT ) Other Surgery: No Social History Alcohol Use: Yes (RARELY) Tobacco Use: Yes (VAPOR CIGARETTES, 0 MG NICOTINE DOSE-hasn't used last few weeks) Substance Use: Yes (MARIJUANA Thursday night) Allergies-Medications (Allergen,Severity, Reaction): Coded Allergies: Penicillin (Verified Allergy, Severe, Anaphylaxis, 04/24/17) Codeine (Verified Allergy, Intermediate, ITCHing, 04/24/17) Reported Meds & Prescriptions Reported Meds & Active Scripts Active Clindamycin (Clindamycin HCl) 150 Mg Cap 300 Mg PO Q8HR 10 Days Ibuprofen 800 Mg Tab 800 Mg PO Q6HR PRN Polytrim Opth Drops (Polymyxin/Trimethoprim Sulfate) 10,000-0.1 Unit/Ml-% Soln 2 Drop RIGHT EYE Q6HR Reported Metformin (Metformin HCl) 1,000 Mg Tab 1,000 Mg PO BIDPC With meals Celecoxib 50 Mg Cap 50 Mg PO BID Gabapentin 600 Mg Tab 300 Mg PO BID Anastrozole 1 Mg Tab 1 Mg PO DAILY Soma (Carisoprodol) 350 Mg Tab 350 Mg PO QID PRN Review of Systems Except as stated in HPI: all other systems reviewed are Neg Physical Exam Narrative GENERAL: Well-nourished, well-developed female patient, in no acute distress; afebrile, nontoxic-appearing SKIN: Warm and dry. HEAD: Atraumatic. Normocephalic. EYES: Pupils equal and round at 3 mm with brisk reaction. PERRLA. EOMI. right lid eversion with no foreign body noted. Right eye without scleral erythema and with mild lower lid edema and mild erythema consistent with preseptal cellulitis. Area of induration noted and palpated to the medial aspect lower eye lid. No orbital tenderness, erythema or cellulitis. Right eye without photophobia. No consensual photophobia. No scleral icterus. No drainage. Bell lamp exam normal. ENT: Mucosa pink and moist. Airway patent. NECK: Trachea midline. CARDIOVASCULAR: Regular rate. RESPIRATORY: No accessory muscle use. GASTROINTESTINAL: Rounded. NEUROLOGICAL: Awake and alert. Oriented 3. No obvious cranial nerve deficits. Motor grossly within normal limits. Normal speech. PSYCHIATRIC: Appropriate mood and affect; insight and judgment normal. Data Data Last Documented VS Vital Signs Date Time Temp Pulse Resp B/P Pulse Ox O2 Delivery O2 Flow Rate FiO2 04/24/17 07:35 16 04/24/17 07:18 97.7 98 156/82 96 Room Air Orders Ibuprofen (Motrin) (04/24/17 08:00) [facility] Medical Decision Making Medical Screen Exam Complete: Yes Emergency Medical Condition: Yes Medical Record Reviewed: Yes Differential Diagnosis Stye, chalazion, preseptal cellulitis, less likely orbital cellulitis Narrative Course 51-year-old female with a stye to her right lower eyelid with preseptal cellulitis. Patient is afebrile and nontoxic-appearing. Bell lamp exam is normal. Ibuprofen ordered in the ER. Instructed patient to follow up with ophthalmology as needed. Polytrim eyedrops, clindamycin, and ibuprofen prescribed for home. Patient verbalizes understanding and agreement with treatment plan. Patient is medically cleared and stable for discharge. Discussed reasons to return to the emergency department. Instructed patient to follow up with primary care provider. Patient agrees with treatment plan. The patients vital signs are stable and the patient is stable for outpatient follow- up and treatment. Patient discharged home, stable and in no acute distress. Diagnosis Primary Impression: Hordeolum of right eye Qualified Code: H00.012 - Hordeolum externum of right lower eyelid Additional Impression: Preseptal cellulitis of right lower eyelid Referrals: Intensivist Primary Care Physician Patient Instructions: General Instructions, Periorbital Cellulitis in Adults ( ED), Stye (ED) Departure Forms: Tests/Procedures, Work Release Enter return to work date: April 25, 2017 Additional Instructions: Antibiotics as prescribed Do not try to pop the sty or squeeze pus from the sty Clean-air eyelid gently with mild soap and water Warm compresses to affected eye 2-3 times daily to encourage the sty to drain on its own Keep your eye clean; don't wear makeup Do not wear contact lenses; go without contact lenses until this diagnosis away Follow-up with ophthalmology as needed Follow-up with primary care provider Return to the emergency department immediately with worsening of symptoms Med/Other Pt SpecificInfo: Prescription(s) given Scripts Clindamycin 150 Mg [id number] Mg PO Q8HR 10 Days Ref 0 Prov:Melita Briseno 04/24/17 Ibuprofen 800 Mg [id number] Mg PO Q6HR PRN (PAIN) #30 TAB Ref 0 Prov:Melita Briseno 04/24/17 Polymyxin B-Trimethoprim Opth Drops (Polytrim Opth Drops)10,000-0.1 Unit/Ml-% Soln2 Drop RIGHT EYE Q6HR #1 BOTTLE Ref 0 Prov:Melita Briseno 04/24/17 Disposition: 01 DISCHARGE HOME Condition: Stable Melita Briseno April 24, 2017 07:48
[2017-04-24] MEDS ORDERED: CLIN1CAP5 PO (07:51)
[2017-04-24 07:55] VITALS: BP 120/78; TEMP 97.8
[2017-04-24] MEDS ORDERED: IBUPROFEN 800 MG TAB PO ONE (08:00)
== END 2017-04-24 07:55 | disposition home or self-care (01) ==
LOC: NEPC 07:16
DX: H00.012 Hordeolum externum right lower eyelid (principal); H00.032 Abscess of right lower eyelid
CPT/HCPCS: 99284

== ENCOUNTER 2018-03-20 10:11 | Emergency (ER) | payer SELFPAY ==
[~2018-03-20] VITALS: Ht 170.2 cm; Wt 67.0 kg
[~2018-03-20 10:11] MED LIST changes: +CELE1CAP11 PO; -CIPR-9 PO; +CLIN150C14 PO; -EXTR500C PO; -GABA300C5 PO; +GABA600T PO; -HYDR-3533 PO; +IBUP1TAB7 PO; +METF1000 PO; +POLY10O RIGHT EYE
[2018-03-20 10:14] VITALS: BP 121/80; PULSE 92; RESP 19; TEMP 97.7; O2SAT 99
[2018-03-20] MEDS ORDERED: MORPHINE SULFATE 4 MG/ML INJ IV PUSH ONE ×2 (11:00→13:15)
[2018-03-20] MEDS ORDERED: ONDANSETRON HCL 4 MG/2 ML VIAL IVP ONE (11:00)
[2018-03-20 11:32] LABS: AUTOMATED NEUTROPHIL # 10.5 TH/MM3 (1.8-7.7); BASOPHIL # 0.1 TH/MM3 (0-0.2); BASOPHIL % 0.8 % (0.0-2.0); EOSINOPHIL % 0.1 % (0.0-4.0); HEMATOCRIT 51.8 % (35.0-46.0); HEMOGLOBIN 18.5 GM/DL (11.6-15.3); LYMPH % 13.2 % (9.0-44.0); LYMPHOCYTE # 1.7 TH/MM3 (1.0-4.8); MEAN CELL VOLUME 87.3 FL (80.0-100.0); MEAN CORPUSCULAR HEMOGLOBIN 31.2 PG (27.0-34.0); MEAN CORPUSCULAR HGB CONC 35.7 % (32.0-36.0); MEAN PLATELET VOLUME 9.6 FL (7.0-11.0); MONOCYTE # 0.3 TH/MM3 (0-0.9); NEUT % 83.9 % (16.0-70.0); PLATELET COUNT 206 TH/MM3 (150-450); RED BLOOD COUNT 5.93 MIL/MM3 (4.00-5.30); RED CELL DISTRIBUTION WIDTH 13.6 % (11.6-17.2); WHITE BLOOD COUNT 12.6 TH/MM3 (4.0-11.0)
[2018-03-20 11:47] LABS: AMORPHOUS SEDIMENT, URINE MANY; BILIRUBIN, URINE NEG (NEG); BLOOD, URINE TRACE (NEG); GLUCOSE,URINE NEG (NEG); KETONE, URINE NEG (NEG); MUCUS URINE MANY /lpf (OCC); NITRITE,URINE NEG (NEG); SQUAMOUS EPITHELIAL CELL URINE 7 /hpf (0-5); URINE COLOR YELLOW (YELLW/STRAW); URINE LEUKOCYTE ESTERASE SMALL (NEG)
--- NOTE | 2018-03-20 11:47 | PD ---
HPI Chief Complaint: GI Complaint Time Seen by Provider: 10:29 Travel History International Travel<30 days: No Contact w/Intl Traveler<30days: No Traveled to known affect area: No History of Present Illness HPI 52yo F with PMH of HTN and right breast CA s/p double mastectomy with no recurrence of disease here with c/o lower abdominal pain and bloody stool since yesterday. Said it started with bowel movement, then diarrhea and then just bright red blood per rectum. Said pain is diffusely in lower abdomen and constant, radiates to lower back. Denies any fever, chest pain ,sob, focal weakness or numbness. PFSH Past Medical History Blood Disorders: No Cancer: Yes (bilat. mastectomy BREAST, mass in neck) Cardiovascular Problems: Yes Chemotherapy: Yes Diminished Hearing: No Endocrine: No Gastrointestinal Disorders: No Genitourinary: No Immune Disorder: No Musculoskeletal: No Neurologic: No Psychiatric: No Reproductive: No Respiratory: Yes Radiation Therapy: Yes (H/O) ?: Not Menopausal: Yes : 15 Para: 1 Miscarriage: 14 Tubal Ligation: Yes Past Surgical History AICD: No Arteriovenous Shunt: No Insulin Pump: No Joint Replacement: No Mastectomy: Yes (BILAT) Pacemaker: No Thoracic Surgery: Yes (LEFT PORT ) Other Surgery: No Social History Alcohol Use: Yes (RARELY) Tobacco Use: Yes (VAPOR CIGARETTES, 0 MG NICOTINE DOSE-hasn't used last few weeks) Substance Use: Yes (MARIJUANA USE HX) Allergies-Medications (Allergen,Severity, Reaction): Coded Allergies: penicillin G (Unverified Allergy, Severe, Anaphylaxis, 03/20/18) codeine (Unverified Allergy, Intermediate, ITCHing, 03/20/18) Reported Meds & Prescriptions Reported Meds & Active Scripts Active Ibuprofen 800 Mg Tab 800 Mg PO Q6HR PRN Reported Gabapentin 600 Mg Tab 300 Mg PO BID Anastrozole 1 Mg Tab 1 Mg PO DAILY Soma (Carisoprodol) 350 Mg Tab 350 Mg PO QID PRN Review of Systems Except as stated in HPI: all other systems reviewed are Neg Physical Exam Narrative GENERAL: 52yo F in mild distress. SKIN: Focused skin assessment warm/dry. HEAD: Atraumatic. Normocephalic. EYES: Pupils equal and round. No scleral icterus. No injection or drainage. ENT: No nasal bleeding or discharge. Mucous membranes pink and moist. NECK: Trachea midline. No JVD. CARDIOVASCULAR: Regular rate and rhythm. No murmur appreciated. RESPIRATORY: No accessory muscle use. Clear to auscultation. Breath sounds equal bilaterally. GASTROINTESTINAL: Abdomen soft, +Lower abdomen diffusely. No rebound tenderness or guarding. RECTAL: No external hemorrhoid. No stool but hemaprompt is positive. MUSCULOSKELETAL: No obvious deformities. No clubbing. No cyanosis. No edema. NEUROLOGICAL: Awake and alert. No obvious cranial nerve deficits. Motor grossly within normal limits. Normal speech. PSYCHIATRIC: Appropriate mood and affect; insight and judgment normal. Data Data Last Documented VS Vital Signs Date Time Temp Pulse Resp B/P (MAP) Pulse Ox O2 Delivery O2 Flow Rate FiO2 03/20/18 16:09 100 21 111/72 (85) 98 Room Air 03/20/18 10:14 97.7 Orders Orders Complete Blood Count With Diff (03/20/18 10:47) Comprehensive Metabolic Panel (03/20/18 10:47) Lipase (03/20/18 10:47) Urinalysis - C+S If Indicated (03/20/18 10:47) Ct Abd/Pel W Iv Contrast(Rout) (03/20/18 10:47) Morphine Inj (Morphine Inj) (03/20/18 11:00) Ondansetron Inj (Zofran Inj) (03/20/18 11:00) Electrocardiogram (03/20/18 ) Type And Screen (03/20/18 10:47) Morphine Inj (Morphine Inj) (03/20/18 13:15) Iohexol 350 Inj (Omnipaque 350 Inj) (03/20/18 15:02) Ciprofloxacin 400 Mg Premix (Cipro 400 M (03/20/18 16:00) Metronidazole (Flagyl) (03/20/18 16:00) Labs Laboratory Tests Test 03/20/18 10:59 White Blood Count 12.6 TH/MM3 Red Blood Count 5.93 MIL/MM3 Hemoglobin 18.5 GM/DL Hematocrit 51.8 % Mean Corpuscular Volume 87.3 FL Mean Corpuscular Hemoglobin 31.2 PG Mean Corpuscular Hemoglobin Concent 35.7 % Red Cell Distribution Width 13.6 % Platelet Count 206 TH/MM3 Mean Platelet Volume 9.6 FL Neutrophils (%) (Auto) 83.9 % Lymphocytes (%) (Auto) 13.2 % Monocytes (%) (Auto) 2.0 % Eosinophils (%) (Auto) 0.1 % Basophils (%) (Auto) 0.8 % Neutrophils # (Auto) 10.5 TH/MM3 Lymphocytes # (Auto) 1.7 TH/MM3 Monocytes # (Auto) 0.3 TH/MM3 Eosinophils # (Auto) 0.0 TH/MM3 Basophils # (Auto) 0.1 TH/MM3 CBC Comment DIFF FINAL Differential Comment Urine Color YELLOW Urine Turbidity CLOUDY Urine pH 6.0 Urine Specific [place] 1.025 Urine Protein 30 mg/dL Urine Glucose (UA) NEG mg/dL Urine Ketones NEG mg/dL Urine Occult Blood TRACE Urine Nitrite NEG Urine Bilirubin NEG Urine Urobilinogen 2.0 MG/DL Urine Leukocyte Esterase SMALL Urine RBC 2 /hpf Urine WBC 3 /hpf Urine Squamous Epithelial Cells 7 /hpf Urine Amorphous Sediment MANY Urine Mucus MANY /lpf Microscopic Urinalysis Comment CULT NOT INDICATED Blood Urea Nitrogen 12 MG/DL Creatinine 0.97 MG/DL Random Glucose 165 MG/DL Total Protein 9.2 GM/DL Albumin 4.4 GM/DL Calcium Level 9.7 MG/DL Alkaline Phosphatase 129 U/L Aspartate Amino Transf (AST/SGOT) 22 U/L Alanine Aminotransferase (ALT/SGPT) 33 U/L Total Bilirubin 0.5 MG/DL Sodium Level 136 MEQ/L Potassium Level 3.8 MEQ/L Chloride Level 105 MEQ/L Carbon Dioxide Level 24.2 MEQ/L Anion Gap 7 MEQ/L Estimat Glomerular Filtration Rate 60 ML/MIN Lipase 126 U/L [facility] Medical Decision Making Medical Screen Exam Complete: Yes Emergency Medical Condition: Yes Interpretation(s) EKG: NSR 78bpm. Normal axis. ST depression II, III, aVF unchanged. Differential Diagnosis Inflammatory bowel disease vs. colitis vs. malignancy Narrative Course 52yo F with lower abdominal pain and blood per rectum. Labs reviewed, mild leukocytosis at 12.6. H/H elevated 18.5/51.8. Lipase normal. UA showed WBC 3. Culture not indicated. CT a/p showed abnormal appearance of colon beginning in distal transverse and extending through most of the descending. Findings suggesting nonspecific colitis. Pt given morphine which helped with pain. Pt given cipro and flagyl for colitis. She is well appearing and can try outpatient treatment. She has no insurance so can do mandatory referral for GI. Diagnosis Primary Impression: Colitis Patient Instructions: General Instructions Departure Forms: Tests/Procedures Additional Instructions: Please follow up with communication equipment mechanic. Please return to the ED if symptoms worsen. Med/Other Pt SpecificInfo: Prescription(s) given Scripts Acetaminophen (Tylenol) 325 Mg Tab 650 MG PO Q6H Y for PAIN SCALE 1 TO 4, #20 TAB 0 Refills Prov: Rita Delgado DO 03/20/18 Metronidazole (Metronidazole) 500 Mg Tab 500 MG PO TID for Infection for 10 Days, TAB 0 Refills Prov: Rita Delgado DO 03/20/18 Ciprofloxacin (Ciprofloxacin) 500 Mg Tab 500 MG PO BID for Infection for 10 Days, #20 TAB 0 Refills Prov: Rita Delgado DO 03/20/18 Disposition: 01 DISCHARGE HOME Condition: Stable Rita Delgado DO Mar 20, 2018 11:47
[2018-03-20 11:48] LABS: ALBUMIN 4.4 GM/DL (3.4-5.0); AST (GOT) 22 U/L (15-37); BICARBONATE 24.2 MEQ/L (21.0-32.0); BLOOD UREA NITROGEN 12 MG/DL (7-18); CALCIUM 9.7 MG/DL (8.5-10.1); CHLORIDE 105 MEQ/L (98-107); CREATININE 0.97 MG/DL (0.50-1.00); GLOMERULAR FILTRATION RATE 60 ML/MIN (>89); GLUCOSE,RANDOM 165 MG/DL (74-106); SODIUM (NA) 136 MEQ/L (136-145)
[2018-03-20 11:49] LABS: ALT (GPT) 33 U/L (10-53)
[2018-03-20 11:51] LABS: ALKALINE PHOSPHATASE 129 U/L (45-117); TOTAL BILIRUBIN ADULT 0.5 MG/DL (0.2-1.0); TOTAL PROTEIN 9.2 GM/DL (6.4-8.2)
[2018-03-20 13:15] VITALS: BP 141/86; PULSE 86; RESP 21; O2SAT 97
[2018-03-20] MEDS ORDERED: IOHEXOL 350 MG/ML 10 ML VIAL (for RAD DIAG) IVCONTRAST ONE (15:02)
--- NOTE | 2018-03-20 15:21 | RADRPT ---
EXAM DATE/TIME: 03/20/2018 14:52 [facility] COMPARISON: CT ABDOMEN & PELVIS W CONTRAST, February 17, 2017, 18:40. INDICATIONS : Rectal bleeding for one day. IV CONTRAST: 5.71 cc Omnipaque 350 (iohexol) IV ORAL CONTRAST: No oral contrast ingested. RADIATION DOSE: 7.29 CTDIvol (mGy) MEDICAL HISTORY : Cardiovascular disease. Carcinoma, breast. SURGICAL HISTORY : Mastectomy, bilateral. Tubal ligation. ENCOUNTER: Initial ACUITY: 1 day PAIN SCALE: 4/10 LOCATION: Abdomen TECHNIQUE: Volumetric scanning of the abdomen and pelvis was performed. Using automated exposure control and ad justment of the mA and/or kV according to patient size, radiation dose was kept as low as reasonably achievable to obtain optimal diagnostic quality images. DICOM format image data is available electro nically for review and comparison. FINDINGS: LOWER LUNGS: The visualized lower lungs are clear. LIVER: Homogeneous density without lesion. There is no dilation of the biliary tree. No calcified gallston es. SPLEEN: Normal size without lesion. PANCREAS: Within normal limits. KIDNEYS: Normal in size and shape. There is no mass, stone or hydronephrosis. Benign-appearing left renal cor tical cysts. ADRENAL GLANDS: Within normal limits. VASCULAR: There is no aortic aneurysm. BOWEL/MESENTERY: Abnormal bowel wall thickening from the distal transverse colon through most of the descending sugges ting a nonspecific regional colitis. Bowel is otherwise grossly normal. The appendix is radiographica lly intact ABDOMINAL WALL: Within normal limits. RETROPERITONEUM: There is no lymphadenopathy. BLADDER: No wall thickening or mass. REPRODUCTIVE: Probable fibroid uterus with uterine lobulations. INGUINAL: There is no lymphadenopathy or hernia. MUSCULOSKELETAL: Within normal limits for patient age. CONCLUSION: 1. Abnormal appearance of the colon beginning in the distal transverse and extending through most of the descending. Findings suggesting nonspecific colitis. 2. Benign-appearing left renal cortical cysts. 3. Probable fibroid uterus. Clyde Rodriguez MD on March 20, 2018 at 15:16 Board Certified Radiologist. This report was verified electronically.
[2018-03-20] MEDS ORDERED: metroNIDAZOLE 500 MG TAB PO ONE (16:00)
[2018-03-20] MEDS ORDERED: CIPROFLOXACIN 400 MG PREMIX 200 ML IV ONE (16:00)
[2018-03-20 16:09] VITALS: BP 111/72; PULSE 100; RESP 21; O2SAT 98
[2018-03-20] MEDS ORDERED: METR1TAB76 PO (16:46)
[2018-03-20] MEDS ORDERED: TYLE325T PO (16:46)
[2018-03-20] MEDS ORDERED: CIPR500T2 PO (16:46)
--- NOTE | 2018-03-22 00:50 | EKG ---
Date Performed: 03/20/2018 Time Performed: 10:58:15 PTAGE: 52 years EKG: Sinus rhythm WITH MARKED SINUS ARRHYTHMIA POSSIBLE RIGHT ATRIAL ENLARGEMENT LEFT ATRIAL ENLARGEMENT POSSIBLE RIGH T VENTRICULAR CONDUCTION DELAY ABNORMAL ECG PREVIOUS TRACING : 11/06/2016 10.11 Compared to previous tracing, rate has decreased and now f elt to be IRBBB DOCTOR: Tomer Potts Interpretating Date/Time 03/22/2018 00:49:32
== END 2018-03-20 17:18 | disposition home or self-care (01) ==
LOC: NEPC 10:11
DX: K52.9 Noninfective gastroenteritis and colitis, unspecified (principal); K62.5 Hemorrhage of anus and rectum; D72.829 Elevated white blood cell count, unspecified; R94.31 Abnormal electrocardiogram [ECG] [EKG]; I10 Essential (primary) hypertension; Z72.0 Tobacco use; Z79.811 Long term (current) use of aromatase inhibitors; Z85.3 Personal history of malignant neoplasm of breast; Z86.79 Personal history of other diseases of the circulatory system
CPT/HCPCS: 74177; 80053; 81001; 83690; 85025; 86850; 86900; 86901; 93005; 96374; 96375; 96376; 99285; J0744; J2270; J2405; Q9967